=== PATIENT | female | born 1960 | race Caucasian/White ===

== ENCOUNTER 2022-09-30 14:52 | Emergency (ER) | payer OTHER ==
[~2022-09-30] VITALS: Ht 165.1 cm; Wt 120.2 kg
[~2022-09-30 14:52] MED LIST: AMOX500 PO; AZIT250 PO; AZO; CYCL10; CYCL10 PO; FLUT.05NI; FLUT44OIA INH; GLUCHON; GLUCHON PO; HYDACE5 PO; IBUP600; IBUP600 PO; IBUP800 PO; LAMO100 PO; LORA1 PO; Lamictal200 MG PO; Norco 5-325 Ta1 EACH PO; OXYACE5T PO; PHENY100ER PO; RXTRAM50 PO; TRAM50 PO
== END 2022-09-30 18:47 | disposition home or self-care (01) ==
LOC: ER 14:52
DX: S02.2XXA Fracture of nasal bones, initial encounter for closed fracture (principal); W01.198A Fall on same level from slipping, tripping and stumbling with subsequent striking against other object, initial encounter; Z91.09 Other allergy status, other than to drugs and biological substances; Z87.891 Personal history of nicotine dependence
CPT/HCPCS: 70450; 70486; 72125; 73110; 99284-25; A9270

== ENCOUNTER → 2023-01-08 | Outpatient (CLI) | payer OTHER | END | disposition home or self-care (01) | LOC: LAB 10:18 → LAB SHORT 10:18 | DX: N39.0 Urinary tract infection, site not specified (principal) | CPT/HCPCS: 87077; 87086; 87186 ==

== ENCOUNTER → 2023-01-16 | Outpatient (CLI) | payer OTHER | END | disposition home or self-care (01) | LOC: LAB SHORT 10:56 → LAB 10:56 | DX: N39.0 Urinary tract infection, site not specified (principal) | CPT/HCPCS: 87086 ==

== ENCOUNTER → 2023-11-27 | Outpatient (CLI) | payer OTHER | LOC: LAB 09:05 → LAB SHORT 09:05 | DX: R30.0 Dysuria (principal) | CPT/HCPCS: 87086 ==

== ENCOUNTER 2024-04-29 03:06 | Emergency (ER) | payer OTHER ==
[~2024-04-29] VITALS: Ht 165.1 cm; Wt 116.1 kg
[2024-04-29 03:34] LABS: Source, Urine Clean Catch
[2024-04-29 03:40] LABS: Appearance, Urine Cloudy (Clear); Bilirubin, Urine Neg (Neg); Blood, Urine 5+ (Neg); Glucose Qualitative, Urine Neg (Neg); Ketones, Urine 1+ (Neg); Leukocyte Esterase, Urine 2+ (Neg); Nitrite, Urine Neg (Neg); Protein, Urine 3+ (Neg); Urobilinogen, Urine 1+ (Normal)
[2024-04-29 03:49] LABS: BASOPHILS ABSOLUTE AUTO 0.06 K/mm3 (0.00-0.23); BASOPHILS PERCENT AUTO 1 % (0-2); EOSINOPHILS ABSOLUTE AUTO 0.29 K/mm3 (0.00-0.68); EOSINOPHILS PERCENT AUTO 4 % (0-6); Hematocrit 44.8 % (33.0-51.0); Hemoglobin 15.3 g/dL (11.5-16.0); IMMATURE GRAN ABSOLUTE AUTO 0.04 K/mm3 (0.00-0.10); IMMATURE GRAN PERCENT AUTO 1 % (0-1); LYMPHOCYTES ABSOLUTE AUTO 1.24 K/mm3 (0.84-5.20); LYMPHOCYTES PERCENT AUTO 19 % (21-46); MONOCYTES ABSOLUTE AUTO 0.54 K/mm3 (0.16-1.47); MONOCYTES PERCENT AUTO 8 % (4-13); Mean Corpuscular HGB 30.1 pg (26.0-34.0); Mean Corpuscular HGB Conc 34.2 g/dL (31.5-36.5); Mean Corpuscular Volume 88 fL (80-100); Mean Platelet Volume 12.4 fL (9.1-12.4); NEUTROPHILS ABSOLUTE AUTO 4.41 K/mm3 (1.96-9.15); NEUTROPHILS PERCENT AUTO 67 % (41-73); Platelet Count 112 K/mm3 (150-400); RDW Coefficient Variation 12.4 % (11.7-14.2); RDW Standard Deviation 40.4 fL (35.1-46.3); Red Blood Cell Count 5.09 M/mm3 (3.80-5.20); White Blood Cell Count 6.58 K/mm3 (4.00-11.30)
[2024-04-29 03:49] LABS: Color, Urine Brown (P-Yellow)
[2024-04-29 04:00] LABS: Bacteria Mod /hpf; Red Blood Cells, Urine TNTC /hpf (0-2); Squamous Epithelial Cells Many /hpf (Few)
[2024-04-29 04:03] LABS: Albumin, Blood 3.8 g/dL (3.4-5.0); Albumin/Globulin Ratio 0.8 (0.8-1.8); Bilirubin, Total 0.6 mg/dL (0.1-1.0); Bun/Creatinine Ratio 20.2 (12.0-20.0); Calcium, Blood 9.6 mg/dL (8.5-10.1); Creatinine, Blood 0.84 mg/dL (0.40-1.00); Globulin, Blood 4.5 g/dL (2.2-4.0); Potassium, Blood 3.7 mmol/L (3.5-5.5); Total Protein, Blood 8.3 g/dL (6.4-8.2)
[2024-04-29] MEDS ORDERED: NS 1,000 ML IV SCH (05:20)
[2024-04-29 05:29] LABS: Source, Urine Straight Cath
[2024-04-29 05:38] LABS: Appearance, Urine Hazy (Clear); Bilirubin, Urine Neg (Neg); Blood, Urine 5+ (Neg); Color, Urine Yellow (P-Yellow); Glucose Qualitative, Urine Neg (Neg); Ketones, Urine 1+ (Neg); Leukocyte Esterase, Urine 1+ (Neg); Nitrite, Urine Neg (Neg); Protein, Urine 2+ (Neg); Specific Gravity, Urine 1.025 (1.003-1.022); Urobilinogen, Urine 1+ (Normal)
[2024-04-29] MEDS ORDERED: Ketorolac Tromethamine 30mg Vial IV ONE (05:40)
[2024-04-29 05:44] LABS: Bacteria Mod /hpf; Red Blood Cells, Urine TNTC /hpf (0-2); Squamous Epithelial Cells Few /hpf (Few); White Blood Cells, Urine 0-2 /hpf (0-5)
[2024-04-29] MEDS ORDERED: Trimethoprim/Sulfamethoxazole DS Tab PO ONE (06:45)
[2024-04-29] MEDS ORDERED: CefTRIAXone Sodium 1,000 MG in NS 50 ML IV ONE (08:15)
[2024-04-29] MEDS ORDERED: SULTRIDS PO (09:42)
[2024-04-29 10:15] VITALS: BP 132/76
== END 2024-04-29 10:15 | disposition home or self-care (01) ==
LOC: ER 03:06
PROVIDERS: Student in an Organized Health Care Education/Training Program
DX: N13.2 Hydronephrosis with renal and ureteral calculous obstruction (principal); N39.0 Urinary tract infection, site not specified; Z87.891 Personal history of nicotine dependence; Z79.899 Other long term (current) drug therapy; Z91.048 Other nonmedicinal substance allergy status
CPT/HCPCS: 74177; 80053; 81001; 85025; A9270; J0696; J1885; J7030; P9612; Q9967